=== PATIENT | male | born 1935 | race Caucasian/White ===

== ENCOUNTER → 2016-12-28 | Day surgery (SDC) | payer MEDICARE, BC ==
[~2016-12-28] MED LIST: AMLODIPINE BESYL5 MG PO; ATACAND PO; EYE VITAMIN-MI1 EACH; LASIX PO; LISINOPRIL PO; NEXIUM PO; OMEPRAZOLE40 M1 PO; PRILOSEC40 MG PO; SYNTHROID PO
--- NOTE | ~2016-12-28 | OR ---
Unit #: [id number] #: [id number] Patient: SUSANNA ELIZALDE [id number] [address] [place], [place] [address] [id number] MR#: [id number] NAME: SUSANNA ELIZALDE. ROOM: Date of Procedure: 12/28/2016 Admission Date: 12/28/2016 Surgeon: Gregorio Padilla M.D. : 1935 Attending Physician: Gregorio Padilla M.D. Referring Physician: Gregorio Padilla M.D. Primary Care Physician: Kahlil Toney Jr., M.D. OPERATIVE REPORT PREOPERATIVE DIAGNOSIS Dysphagia. POSTOPERATIVE DIAGNOSIS Dysphagia. PROCEDURES PERFORMED 1. Esophagogastroduodenoscopy. 2. Biopsy of antrum for Helicobacter pylori testing. ANESTHESIA Monitored anesthesia care. FINDINGS The patient was found to have mild distal gastritis. There was some mild distal esophagitis as well. He had a normal upper esophagus. The duodenal nodule was unchanged. SPECIMENS Sent to pathology. COMPLICATIONS None apparent. CONDITION The patient tolerated the procedure well. INDICATIONS FOR PROCEDURE The patient is an 81-year-old white male, who presents at this time for evaluation of dysphagia. DESCRIPTION OF PROCEDURE After obtaining informed consent, the patient was brought to the endoscopy suite and after adequate monitored anesthesia care, had the endoscope placed through the mouth in the upper esophagus under direct vision. It was advanced to the second and third portion of the duodenum without difficulty with lumen always in view. The patient had a very small duodenal nodule identified on upper endoscopy approximately 5 years ago. 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 He had an extensive workup by his oncologist to determine at this point. He needs no further treatment. The nodule appears unchanged. On pulling back, the Unit #: [id number] #: [id number] Patient: SUSANNA ELIZALDE sweep of the duodenum was normal as was the duodenal bulb. The pylorus opened normally. There was some distal gastritis present and a biopsy was obtained for Helicobacter pylori testing. On retroflexion back to the GE junction, no hiatal hernia was seen. There was no abnormality seen in the proximal third, middle third, or incisura. On pulling back above the GE junction, there was some mild distal esophagitis, but no stenosis, stricture, or neoplasm seen. The remaining portion of the esophagus was normal. There was no upper esophageal narrowing able to be visualized and the laryngeal structures were grossly normal as viewed from above. The patient went from the endoscopy suite to recovery area in stable condition. RECOMMENDATIONS GERD sheet given. Call Saturday for pathology. My office will call Saturday to arrange a video swallowing study. Dictated by... Rahul West/lucero TD: 12/28/2016 23:19 JOB #: [id number] CC: Rahul Turner Jr, M.D. [facility] OPERATIVE REPORT Page 1 of 1 X Gregorio Padilla MD X PROCEDURE OPERATIVE NOTE
== END | disposition home or self-care (01) ==
LOC: COPS 05:23
DX: K21.0 Gastro-esophageal reflux disease with esophagitis (principal); K29.70 Gastritis, unspecified, without bleeding; R13.10 Dysphagia, unspecified; I10 Essential (primary) hypertension; E03.9 Hypothyroidism, unspecified; M54.9 Dorsalgia, unspecified; C85.93 Non-Hodgkin lymphoma, unspecified, intra-abdominal lymph nodes; H26.9 Unspecified cataract; Z85.46 Personal history of malignant neoplasm of prostate; Z79.899 Other long term (current) drug therapy; Z80.0 Family history of malignant neoplasm of digestive organs; Z82.5 Family history of asthma and other chronic lower respiratory diseases; Z96.653 Presence of artificial knee joint, bilateral; Z98.890 Other specified postprocedural states; Z90.49 Acquired absence of other specified parts of digestive tract; Z88.1 Allergy status to other antibiotic agents
CPT/HCPCS: 87077

== ENCOUNTER → 2017-01-03 | Outpatient (CLI) | payer MEDICARE, BC | END | disposition home or self-care (01) | LOC: CRAD 09:58 | DX: R13.10 Dysphagia, unspecified (principal) | CPT/HCPCS: 74230; 92611; G8996-GN; G8997-GN; G8998-GN ==